=== PATIENT | female | born 1960 | race Caucasian/White ===

== ENCOUNTER 2017-09-16 15:20 | Emergency (ER) | payer OTHER ==
[~2017-09-16] VITALS: Ht 165.1 cm; Wt 77.0 kg
[2017-09-16 15:29] VITALS: BP 105/68
== END 2017-09-16 17:05 | disposition home or self-care (01) ==
LOC: ED 16:55
DX: S52.514 Nondisplaced fracture of right radial styloid process (principal); S61.511D Laceration without foreign body of right wrist, subsequent encounter; G89.29 Other chronic pain; W54.0XXD Bitten by dog, subsequent encounter
CPT/HCPCS: 99282

== ENCOUNTER 2018-03-24 08:45 | Emergency (ER) | payer OTHER ==
[~2018-03-24] VITALS: Ht 167.6 cm; Wt 78.0 kg
[2018-03-24] MEDS ORDERED: MECLIZINE CHEWABLE 25 MG TAB ONE (09:17)
[2018-03-24] MEDS ORDERED: DOCUSATE 50 MG/5 ML, 10ML UDC ONE (09:17)
[2018-03-24] MEDS ORDERED: ONDANSETRON ODT 4 MG ONE (09:18)
[2018-03-24] MEDS ORDERED: DOCUSATE 50 MG/5 ML ORAL SOL OT ONE (09:30)
[2018-03-24] MEDS ORDERED: MECLIZINE CHEWABLE 25 MG TAB PO ONE (09:30)
[2018-03-24 09:35] LABS: BASOPHILS # (AUTO) 0.03 x10^3/uL (0-0.1); BASOPHILS % (AUTO) 1 % (0-1); EOSINOPHILS # (AUTO) 0.14 x10^3/uL (0-0.4); EOSINOPHILS % (AUTO) 3 % (1-7); LYMPHOCYTES # (AUTO) 1.41 x10^3/uL (1-3.4); LYMPHOCYTES % (AUTO) 31 % (22-44); MD NO; MEAN CORPUSCULAR HEMOGLOBIN 28.8 pg (27.0-34.8); MEAN CORPUSCULAR HGB CONC 33.7 g/dL (32.4-35.8); MEAN CORPUSCULAR VOLUME 85.4 fL (80-100); MONOCYTES # (AUTO) 0.25 x10^3/uL (0.2-0.8); MONOCYTES % (AUTO) 5 % (2-9); NEUTROPHILS # (AUTO) 2.79 x10^3/uL (1.8-6.8); NEUTROPHILS % (AUTO) 60 % (42-75); PLATELET COUNT 175 x10^3/uL (130-400); RED BLOOD COUNT 4.59 x10^6/uL (3.82-5.3); RED CELL DISTRIBUTION WIDTH 13.4 % (9.6-15.2)
[2018-03-24 09:45] LABS: ALBUMIN 3.3 g/dL (3.4-5.0); ANION GAP 9 mmol/L (5-15); CALCIUM 8.2 mg/dL (8.5-10.1); CHLORIDE 107 mmol/L (98-107); CREATININE 0.79 mg/dL (0.55-1.02)
[2018-03-24] MEDS ORDERED: ONDANSETRON ODT 4 MG PO ONE (11:00)
[2018-03-24 11:30] VITALS: BP 100/60
== END 2018-03-24 11:32 | disposition home or self-care (01) ==
LOC: ED 10:10
DX: H61.23 Impacted cerumen, bilateral (principal)
CPT/HCPCS: 36415; 71045; 80048; 82040; 85025; 93005; 99284; Q0162